=== PATIENT | male | born 1970 | race Caucasian/White ===

== ENCOUNTER 2021-08-20 11:25 | Emergency (ER) | payer OTHER ==
[~2021-08-20] VITALS: Ht 188 cm; Wt 109.1 kg
[2021-08-20 11:32] VITALS: BP 178/110
== END 2021-08-20 12:08 | disposition home or self-care (01) ==
LOC: ER 11:26
DX: T20.27XA Burn of second degree of neck, initial encounter (principal); T22.252A Burn of second degree of left shoulder, initial encounter; Z88.0 Allergy status to penicillin; X16.XXXA Contact with hot heating appliances, radiators and pipes, initial encounter; Y93.89 Activity, other specified; Y92.89 Other specified places as the place of occurrence of the external cause; Y99.8 Other external cause status
CPT/HCPCS: 10060; 16020; 99282